=== PATIENT | female | born 1975 | race Caucasian/White ===

== ENCOUNTER 2018-05-10 08:45 | Emergency (ER) | payer BC, OTHER ==
[~2018-05-10] VITALS: Ht 157.5 cm; Wt 50.8 kg
[2018-05-10 08:52] VITALS: BP 122/81
[2018-05-10] MEDS ORDERED: KETOROLAC TROMETHAMINE INJ 30 MG/ML VIAL ONE (09:14)
[2018-05-10] MEDS: KETOROLAC TROMETHAMINE INJ 60 MG/2 ML VIAL IM ONE (09:21)
--- NOTE | 2018-05-10 09:26 | NUR ---
medicated as ordered. d/c home in stable condition.
== END 2018-05-10 09:27 | disposition home or self-care (01) ==
LOC: ER 08:48
DX: M54.12 Radiculopathy, cervical region (principal); M48.00 Spinal stenosis, site unspecified; G89.29 Other chronic pain; Z87.19 Personal history of other diseases of the digestive system; Z98.890 Other specified postprocedural states
CPT/HCPCS: A4606; J1885; Z7610